=== PATIENT | female | born 1980 | race Caucasian/White ===

== ENCOUNTER 2021-01-11 17:45 | Emergency (ER) | payer OTHER ==
[~2021-01-11] VITALS: Ht 170.2 cm; Wt 106.3 kg
--- NOTE | 2021-01-11 18:53 | NUR ---
Report from Lisa EDEN
[2021-01-11] MEDS ORDERED: ALBUTEROL SULFATE 2.5 MG/3 ML NPPB ONE (19:00)
[2021-01-11] MEDS ORDERED: ACETAMINOPHEN 325 MG TABLET PO ONE (19:00)
[2021-01-11] MEDS ORDERED: BENZONATATE 100 MG CAPSULE PO ONE (19:00)
[2021-01-11] MEDS ORDERED: BENZONATATE 100 MG CAPSULE ONE (19:01)
[2021-01-11] MEDS ORDERED: ALBUTEROL SULFATE 2.5 MG/3 ML ONE (19:02)
[2021-01-11] MEDS ORDERED: ACETAMINOPHEN 500 MG TABLET ONE (19:02)
[2021-01-11 19:13] VITALS: BP 114/68
== END 2021-01-11 20:26 | disposition home or self-care (01) ==
LOC: ED 20:13
DX: U07.1 COVID-19 (principal); J98.01 Acute bronchospasm; R06.02 Shortness of breath; F17.200 Nicotine dependence, unspecified, uncomplicated; Z88.0 Allergy status to penicillin
CPT/HCPCS: 71045; 93005; 94640; 99284; J7512; J7613

== ENCOUNTER 2021-01-16 14:57 | Inpatient (IN) | payer OTHER ==
[~2021-01-16] VITALS: Ht 170.2 cm; Wt 223.2 kg
--- NOTE | 2021-01-16 15:24 | NUR ---
PATIENT WHEELED BACK FROM TRIAGE WITH CHIEF C/O COVID + OF LAST WEDNESDAY. PER PATIENT COUGH, SOB, AND FEVER HAVE NOT IMPROVED. PATIENT CURRENTLY ON 6 LPM NC WITH O2 SATURATION AT 91%-93%, OTHER VSS, CALL LIGHT WITHIN REACH.
[2021-01-16] MEDS ORDERED: DEXAMETHASONE 4 MG/ML, 1ML ONE (16:24)
--- NOTE | 2021-01-16 16:26 | NUR ---
[employer] WORK[employer] AT BEDSIDE. PATIENT MEDICATED PER eMAR, NADN, CONNECTED TO MONITOR, VSS, CALL LIGHT WITHIN REACH.
[2021-01-16] MEDS ORDERED: DEXAMETHASONE 4 MG/ML, 1ML IV ONE (16:30)
[2021-01-16 16:46] LABS: BASOPHILS % (AUTO) 0 % (0-1); EOSINOPHILS % (AUTO) 0 % (1-7); LYMPHOCYTES % (AUTO) 4 % (22-44); MEAN CORPUSCULAR HEMOGLOBIN 31.7 pg (27.0-34.8); MEAN CORPUSCULAR HGB CONC 34.2 g/dL (32.4-35.8); MEAN PLATELET VOLUME 8.8 fL (7.4-10.4); MONOCYTES % (AUTO) 5 % (2-9); NEUTROPHILS % (AUTO) 90 % (42-75); PLATELET COUNT 168 x10^3/uL (130-400); RED BLOOD COUNT 4.69 x10^6/uL (3.82-5.3); RED CELL DISTRIBUTION WIDTH 13.6 % (9.6-15.2)
[2021-01-16 16:56] LABS: ALBUMIN 2.9 g/dL (3.4-5.0); ANION GAP 9 mmol/L (5-15); CALCIUM 8.5 mg/dL (8.5-10.1); CHLORIDE 106 mmol/L (98-107)
[2021-01-16 17:00] LABS: D-DIMER (DIC) 1.13 ug/mlFEU (0.00-0.52)
[2021-01-16 17:05] LABS: ALANINE AMINOTRANSFERASE 63 U/L (12-78); ALKALINE PHOSPHATASE 69 U/L (45-117); BILIRUBIN,TOTAL 0.5 mg/dL (0.2-1.0); CREATININE 0.58 mg/dL (0.55-1.02); TOTAL PROTEIN 6.8 g/dL (6.4-8.2)
--- NOTE | 2021-01-16 17:30 | NUR ---
PATIENT SITTING IN GURNEY WATCHING TV, NADN, CONNECTED TO MONITOR, VSS, CALL LIGHT WITHIN REACH, NO FURTHER NEEDS AT THIS TIME. PATIENT UP FOR RECHECK.
--- NOTE | 2021-01-16 18:27 | NUR ---
FOOD AND WATER PROVIDED TO PATIENT, NADN, CONNECTED TO MONITOR, VSS, CALL LIGHT WITHIN REACH, NO FURTHER NEEDS AT THIS TIME. WAITING FOR ROOM ASSIGNMENT UPSTAIRS.
[2021-01-16] MEDS ORDERED: AZITHROMYCIN 500 MG in SODIUM CHLORIDE 0.9% 250 ML IV SCH (19:30)
[2021-01-16] MEDS ORDERED: PHARMACY MAY ADJ FOR RENAL FX MC PRN (19:30)
[2021-01-16] MEDS ORDERED: CEFTRIAXONE 1,000 MG in DEXTROSE 5% 50 ML IVPB SCH (19:30)
[2021-01-16] MEDS ORDERED: ACETAMINOPHEN 325 MG TABLET PO PRN (19:30)
[2021-01-16] MEDS ORDERED: REMDESIVIR 200 MG in SODIUM CHLORIDE 0.9% 250 ML IVPB ONE (20:30)
[2021-01-16] MEDS: ENOXAPARIN 40 MG/0.4 ML SQ SCH (20:39)
[2021-01-16] MEDS: MELATONIN 5 MG TABLET PO SCH (20:39)
[2021-01-16] MEDS: ASCORBIC ACID 500 MG TABLET PO SCH (20:39)
[2021-01-16 21:15] VITALS: BP 112/75
[2021-01-17] MEDS ORDERED: GUAIFENESIN/COD200MG-20MG/10ML LIQUID PO ONE
[2021-01-17] MEDS ORDERED: DOXYCYCLINE 100 MG in DEXTROSE 5% 250 ML IV SCH
[2021-01-17 01:12] VITALS: BP 97/64
[2021-01-17 06:49] LABS: HCT (SEDRATE) 40.4 % (34.6-47.8)
[2021-01-17 06:51] LABS: BASOPHILS % (AUTO) 0 % (0-1); EOSINOPHILS % (AUTO) 0 % (1-7); LYMPHOCYTES % (AUTO) 10 % (22-44); MEAN CORPUSCULAR HEMOGLOBIN 31.2 pg (27.0-34.8); MEAN CORPUSCULAR HGB CONC 33.7 g/dL (32.4-35.8); MEAN PLATELET VOLUME 8.9 fL (7.4-10.4); MONOCYTES % (AUTO) 11 % (2-9); NEUTROPHILS % (AUTO) 79 % (42-75); PLATELET COUNT 201 x10^3/uL (130-400); RED BLOOD COUNT 4.39 x10^6/uL (3.82-5.3); RED CELL DISTRIBUTION WIDTH 13.1 % (9.6-15.2)
[2021-01-17 07:03] LABS: CHLORIDE 104 mmol/L (98-107)
[2021-01-17 07:04] LABS: INTERNATIONAL NORMALIZED RATIO 0.96 (0.93-1.1); PROTHROMBIN TIME 10.3 Seconds (9.6-11.5)
[2021-01-17 07:14] LABS: ALANINE AMINOTRANSFERASE 67 U/L (12-78); ALBUMIN 2.8 g/dL (3.4-5.0); ALKALINE PHOSPHATASE 63 U/L (45-117); ANION GAP 8 mmol/L (5-15); BILIRUBIN,TOTAL 0.5 mg/dL (0.2-1.0); CALCIUM 8.3 mg/dL (8.5-10.1); CREATINE KINASE, TOTAL 89 U/L (26-192); CREATININE 0.65 mg/dL (0.55-1.02); TOTAL PROTEIN 6.5 g/dL (6.4-8.2)
[2021-01-17] MEDS: CHOLECALCIFEROL 5,000u TAB PO SCH (09:09)
[2021-01-17] MEDS: DEXAMETHASONE 4 MG/ML, 1ML IVPush SCH (09:09)
[2021-01-17] MEDS: ZINC SULFATE 220 MG CAPSULE PO SCH (09:09)
[2021-01-17] MEDS: ASCORBIC ACID 500 MG TABLET PO SCH ×2 (09:09→21:10)
[2021-01-17] MEDS: DOXYCYCLINE 100MG TABLET PO SCH ×2 (10:44→21:09)
[2021-01-17] MEDS: CEFTRIAXONE 2 GM in DEXTROSE 5% 50 ML IVPB SCH (10:44)
[2021-01-17 14:36] VITALS: BP 105/72
[2021-01-17] MEDS: BENZONATATE 100 MG CAPSULE PO SCH ×3 (14:42→21:10)
[2021-01-17] MEDS: GUAIFENESIN/DM 200-20MG, 10ML UDC PO SCH ×2 (16:45→21:10)
[2021-01-17 20:18] VITALS: BP 105/72
[2021-01-17 21:00] VITALS: BP 99/72
[2021-01-17] MEDS: MELATONIN 5 MG TABLET PO SCH (21:09)
[2021-01-17] MEDS: ENOXAPARIN 40 MG/0.4 ML SQ SCH (21:09)
[2021-01-18 01:02] VITALS: BP 103/69
[2021-01-18] MEDS: GUAIFENESIN/DM 200-20MG, 10ML UDC PO SCH ×4 (02:57→20:16)
[2021-01-18] MEDS: REMDESIVIR 100 MG in SODIUM CHLORIDE 0.9% 250 ML IVPB SCH (02:57)
[2021-01-18] MEDS ORDERED: ONDANSETRON ODT 4 MG ONE (04:47)
[2021-01-18] MEDS ORDERED: LORazepam 2 MG/ML, 1ML ONE ×2 (04:50→20:07)
[2021-01-18] MEDS: ONDANSETRON 4 MG TABLET PO PRN ×2 (04:58→11:26)
[2021-01-18] MEDS ORDERED: LORazepam 2 MG/ML, 1ML IVPush ONE (05:00)
[2021-01-18 08:57] LABS: BASOPHILS % (AUTO) 0 % (0-1); EOSINOPHILS % (AUTO) 0 % (1-7); HCT (SEDRATE) 41.2 % (34.6-47.8); LYMPHOCYTES % (AUTO) 12 % (22-44); MEAN CORPUSCULAR HEMOGLOBIN 31.2 pg (27.0-34.8); MEAN CORPUSCULAR HGB CONC 33.4 g/dL (32.4-35.8); MEAN PLATELET VOLUME 8.5 fL (7.4-10.4); MONOCYTES % (AUTO) 4 % (2-9); NEUTROPHILS % (AUTO) 83 % (42-75); PLATELET COUNT 223 x10^3/uL (130-400); RED BLOOD COUNT 4.46 x10^6/uL (3.82-5.3); RED CELL DISTRIBUTION WIDTH 13.6 % (9.6-15.2)
[2021-01-18 09:12] LABS: ALANINE AMINOTRANSFERASE 83 U/L (12-78); ALBUMIN 2.5 g/dL (3.4-5.0); ANION GAP 9 mmol/L (5-15); CALCIUM 8.3 mg/dL (8.5-10.1); CHLORIDE 105 mmol/L (98-107); CREATININE 0.64 mg/dL (0.55-1.02)
[2021-01-18 09:17] LABS: INTERNATIONAL NORMALIZED RATIO 1.03 (0.93-1.1)
[2021-01-18 09:19] LABS: ALKALINE PHOSPHATASE 62 U/L (45-117); BILIRUBIN,TOTAL 0.5 mg/dL (0.2-1.0); CREATINE KINASE, TOTAL 71 U/L (26-192)
[2021-01-18] MEDS: BENZONATATE 100 MG CAPSULE PO SCH ×3 (09:52→20:16)
[2021-01-18] MEDS: DOXYCYCLINE 100MG TABLET PO SCH ×2 (09:52→20:16)
[2021-01-18] MEDS: ASCORBIC ACID 500 MG TABLET PO SCH ×2 (09:52→20:17)
[2021-01-18] MEDS: CHOLECALCIFEROL 5,000u TAB PO SCH (09:53)
[2021-01-18] MEDS: ZINC SULFATE 220 MG CAPSULE PO SCH (09:53)
[2021-01-18] MEDS: FUROSEMIDE 20 MG/2 ML IV SCH ×2 (09:53→17:00)
[2021-01-18] MEDS: DEXAMETHASONE 4 MG/ML, 1ML IVPush SCH (09:53)
[2021-01-18] MEDS: ENOXAPARIN 40 MG/0.4 ML SQ SCH ×2 (09:54→20:16)
[2021-01-18] MEDS ORDERED: FUROSEMIDE 40 MG/4 ML ONE (09:55)
[2021-01-18] MEDS: CEFTRIAXONE 2 GM in DEXTROSE 5% 50 ML IVPB SCH ×2 (10:00→17:00)
[2021-01-18] MEDS ORDERED: PROPOFOL 10 MG/ML, 100ML IV ONE (11:08)
[2021-01-18] MEDS ORDERED: ETOMIDATE 20 MG/10 ML ONE (11:08)
[2021-01-18] MEDS ORDERED: MIDAZOLAM 1 MG/ML, 5ML ONE (11:08)
[2021-01-18] MEDS ORDERED: POTASSIUM CHLORIDE 20 MEQ TAB.ER.PRT PO SCH (17:00)
[2021-01-18] MEDS ORDERED: ONDANSETRON 2MG/ML, 2ML ONE (20:06)
[2021-01-18] MEDS: ONDANSETRON 2MG/ML, 2ML IVPush PRN (20:15)
[2021-01-18] MEDS: MELATONIN 5 MG TABLET PO SCH (20:17)
[2021-01-18] MEDS: LORazepam 2 MG/ML, 1ML IVPush PRN (20:39)
[2021-01-19] MEDS: REMDESIVIR 100 MG in SODIUM CHLORIDE 0.9% 250 ML IVPB SCH (03:00)
[2021-01-19] MEDS: GUAIFENESIN/DM 200-20MG, 10ML UDC PO SCH ×2 (03:30→08:00)
[2021-01-19 04:28] LABS: ANION GAP 5 mmol/L (5-15); CALCIUM 8.2 mg/dL (8.5-10.1); CHLORIDE 106 mmol/L (98-107)
[2021-01-19] MEDS: ONDANSETRON 2MG/ML, 2ML IVPush PRN ×2 (04:40→11:53)
[2021-01-19] MEDS: LORazepam 2 MG/ML, 1ML IVPush PRN (04:40)
[2021-01-19] MEDS: CHOLECALCIFEROL 5,000u TAB PO SCH (07:59)
[2021-01-19] MEDS: FUROSEMIDE 20 MG/2 ML IV SCH ×2 (07:59→17:37)
[2021-01-19] MEDS: BENZONATATE 100 MG CAPSULE PO SCH ×3 (07:59→20:26)
[2021-01-19] MEDS: ASCORBIC ACID 500 MG TABLET PO SCH ×2 (07:59→20:31)
[2021-01-19] MEDS: POTASSIUM CHLORIDE 20 MEQ TAB.ER.PRT PO SCH ×2 (07:59→17:36)
[2021-01-19] MEDS: DOXYCYCLINE 100MG TABLET PO SCH ×2 (07:59→20:26)
[2021-01-19] MEDS: DEXAMETHASONE 4 MG/ML, 1ML IVPush SCH (08:00)
[2021-01-19] MEDS: ENOXAPARIN 40 MG/0.4 ML SQ SCH ×2 (08:00→20:26)
[2021-01-19] MEDS: ZINC SULFATE 220 MG CAPSULE PO SCH (08:03)
[2021-01-19] MEDS: GUAIFENESIN/COD200MG-20MG/10ML LIQUID PO SCH ×3 (08:30→20:26)
[2021-01-19] MEDS: CEFTRIAXONE 2 GM in DEXTROSE 5% 50 ML IVPB SCH (17:37)
[2021-01-19] MEDS: MELATONIN 5 MG TABLET PO SCH (20:26)
[2021-01-20] MEDS: ONDANSETRON 2MG/ML, 2ML IVPush PRN ×3 (00:26→08:24)
[2021-01-20] MEDS: REMDESIVIR 100 MG in SODIUM CHLORIDE 0.9% 250 ML IVPB SCH (03:17)
[2021-01-20] MEDS: GUAIFENESIN/COD200MG-20MG/10ML LIQUID PO SCH ×4 (03:17→20:37)
[2021-01-20 04:57] LABS: ANION GAP 5 mmol/L (5-15); CALCIUM 8.5 mg/dL (8.5-10.1); CHLORIDE 106 mmol/L (98-107); CREATININE 0.61 mg/dL (0.55-1.02)
[2021-01-20] MEDS: THIAMINE 100MG TABLET PO SCH (08:23)
[2021-01-20] MEDS: BENZONATATE 100 MG CAPSULE PO SCH ×3 (08:23→20:37)
[2021-01-20] MEDS: ZINC SULFATE 220 MG CAPSULE PO SCH (08:24)
[2021-01-20] MEDS: CHOLECALCIFEROL 5,000u TAB PO SCH (08:24)
[2021-01-20] MEDS: FUROSEMIDE 20 MG/2 ML IV SCH ×2 (08:24→15:54)
[2021-01-20] MEDS: DOXYCYCLINE 100MG TABLET PO SCH ×2 (08:24→20:37)
[2021-01-20] MEDS: ASCORBIC ACID 500 MG TABLET PO SCH ×2 (08:24→20:38)
[2021-01-20] MEDS: ENOXAPARIN 40 MG/0.4 ML SQ SCH ×2 (08:25→20:38)
[2021-01-20] MEDS: DEXAMETHASONE 4 MG/ML, 1ML IVPush SCH ×3 (08:25→20:37)
[2021-01-20] MEDS ORDERED: FILTER 0.22 MICRON IV ONE (10:00)
[2021-01-20] MEDS ORDERED: TOCILIZUMAB 800 MG in SODIUM CHLORIDE 0.9% 100 ML IVPB ONE (10:00)
[2021-01-20] MEDS: ONDANSETRON 2MG/ML, 2ML IVPush SCH ×3 (13:17→20:10)
[2021-01-20] MEDS: CEFTRIAXONE 2 GM in DEXTROSE 5% 50 ML IVPB SCH (16:09)
[2021-01-20] MEDS: MELATONIN 5 MG TABLET PO SCH (20:37)
[2021-01-21] MEDS: ONDANSETRON 2MG/ML, 2ML IVPush SCH ×2 (00:34→04:34)
[2021-01-21] MEDS: GUAIFENESIN/COD200MG-20MG/10ML LIQUID PO SCH ×4 (02:56→20:33)
[2021-01-21] MEDS: REMDESIVIR 100 MG in SODIUM CHLORIDE 0.9% 250 ML IVPB SCH (02:56)
[2021-01-21] MEDS: DEXAMETHASONE 4 MG/ML, 1ML IVPush SCH ×4 (02:56→20:33)
[2021-01-21 04:45] LABS: BASOPHILS % (AUTO) 0 % (0-1); EOSINOPHILS % (AUTO) 0 % (1-7); LYMPHOCYTES % (AUTO) 6 % (22-44); MEAN CORPUSCULAR HEMOGLOBIN 31.7 pg (27.0-34.8); MEAN CORPUSCULAR HGB CONC 34.2 g/dL (32.4-35.8); MEAN PLATELET VOLUME 8.6 fL (7.4-10.4); MONOCYTES % (AUTO) 4 % (2-9); NEUTROPHILS % (AUTO) 90 % (42-75); PLATELET COUNT 274 x10^3/uL (130-400); RED BLOOD COUNT 4.41 x10^6/uL (3.82-5.3); RED CELL DISTRIBUTION WIDTH 13.1 % (9.6-15.2)
[2021-01-21 04:51] LABS: ANION GAP 4 mmol/L (5-15); CALCIUM 8.4 mg/dL (8.5-10.1); CHLORIDE 102 mmol/L (98-107); CREATININE 0.53 mg/dL (0.55-1.02)
[2021-01-21] MEDS ORDERED: ONDANSETRON 2MG/ML, 2ML IVPush PRN (08:30)
[2021-01-21] MEDS ORDERED: LOPERAMIDE 2 MG CAPSULE PO PRN (09:00)
[2021-01-21] MEDS: FUROSEMIDE 20 MG/2 ML IV SCH ×2 (09:20→17:29)
[2021-01-21] MEDS: ENOXAPARIN 40 MG/0.4 ML SQ SCH ×2 (09:20→20:34)
[2021-01-21] MEDS: BENZONATATE 100 MG CAPSULE PO SCH ×3 (09:22→20:34)
[2021-01-21] MEDS: POTASSIUM CHLORIDE 20 MEQ TAB.ER.PRT PO SCH ×2 (09:22→17:29)
[2021-01-21] MEDS: ZINC SULFATE 220 MG CAPSULE PO SCH (09:22)
[2021-01-21] MEDS: CHOLECALCIFEROL 5,000u TAB PO SCH (09:22)
[2021-01-21] MEDS: DOXYCYCLINE 100MG TABLET PO SCH ×2 (09:22→20:34)
[2021-01-21] MEDS: THIAMINE 100MG TABLET PO SCH (09:23)
[2021-01-21] MEDS: ASCORBIC ACID 500 MG TABLET PO SCH ×2 (14:32→20:34)
[2021-01-21] MEDS: CEFTRIAXONE 2 GM in DEXTROSE 5% 50 ML IVPB SCH (17:29)
[2021-01-21] MEDS: MELATONIN 5 MG TABLET PO SCH (20:33)
[2021-01-22] MEDS: GUAIFENESIN/COD200MG-20MG/10ML LIQUID PO SCH ×4 (02:52→20:54)
[2021-01-22] MEDS: DEXAMETHASONE 4 MG/ML, 1ML IVPush SCH ×4 (02:52→20:54)
[2021-01-22 05:24] LABS: ANION GAP 3 mmol/L (5-15); CALCIUM 8.6 mg/dL (8.5-10.1); CHLORIDE 103 mmol/L (98-107); CREATININE 0.68 mg/dL (0.55-1.02)
[2021-01-22] MEDS: BENZONATATE 100 MG CAPSULE PO SCH ×3 (09:07→20:54)
[2021-01-22] MEDS: THIAMINE 100MG TABLET PO SCH (09:07)
[2021-01-22] MEDS: ZINC SULFATE 220 MG CAPSULE PO SCH (09:08)
[2021-01-22] MEDS: FUROSEMIDE 20 MG/2 ML IV SCH ×2 (09:08→16:23)
[2021-01-22] MEDS: DOXYCYCLINE 100MG TABLET PO SCH ×2 (09:08→20:55)
[2021-01-22] MEDS: CHOLECALCIFEROL 5,000u TAB PO SCH (09:08)
[2021-01-22] MEDS: ASCORBIC ACID 500 MG TABLET PO SCH ×2 (09:08→20:55)
[2021-01-22] MEDS: ENOXAPARIN 40 MG/0.4 ML SQ SCH ×2 (09:09→20:57)
[2021-01-22 09:44] LABS: BILIRUBIN,TOTAL 0.4 mg/dL (0.2-1.0)
[2021-01-22] MEDS ORDERED: TOCILIZUMAB 800 MG in SODIUM CHLORIDE 0.9% 60 ML IVPB ONE (11:00)
[2021-01-22] MEDS: REMDESIVIR 100 MG in SODIUM CHLORIDE 0.9% 250 ML IVPB SCH (11:17)
[2021-01-22] MEDS: CEFTRIAXONE 2 GM in DEXTROSE 5% 50 ML IVPB SCH (16:28)
[2021-01-22] MEDS: MELATONIN 5 MG TABLET PO SCH (20:54)
[2021-01-23] VITALS (9 sets, daily range): BP systolic 84–101; BP diastolic 41–73
[2021-01-23] MEDS: GUAIFENESIN/COD200MG-20MG/10ML LIQUID PO SCH ×4 (03:27→21:12)
[2021-01-23] MEDS: DEXAMETHASONE 4 MG/ML, 1ML IVPush SCH ×3 (03:28→21:12)
[2021-01-23 05:22] LABS: BASOPHILS % (AUTO) 0 % (0-1); EOSINOPHILS % (AUTO) 0 % (1-7); LYMPHOCYTES % (AUTO) 4 % (22-44); MEAN CORPUSCULAR HEMOGLOBIN 31.4 pg (27.0-34.8); MEAN CORPUSCULAR HGB CONC 34.1 g/dL (32.4-35.8); MEAN PLATELET VOLUME 8.6 fL (7.4-10.4); MONOCYTES % (AUTO) 5 % (2-9); NEUTROPHILS % (AUTO) 91 % (42-75); PLATELET COUNT 280 x10^3/uL (130-400); RED BLOOD COUNT 4.73 x10^6/uL (3.82-5.3); RED CELL DISTRIBUTION WIDTH 12.8 % (9.6-15.2)
[2021-01-23 05:37] LABS: ALANINE AMINOTRANSFERASE 35 U/L (12-78); ALBUMIN 2.6 g/dL (3.4-5.0); ANION GAP 6 mmol/L (5-15); CHLORIDE 102 mmol/L (98-107)
[2021-01-23 05:39] LABS: ALKALINE PHOSPHATASE 48 U/L (45-117); BILIRUBIN,TOTAL 0.4 mg/dL (0.2-1.0); TOTAL PROTEIN 5.9 g/dL (6.4-8.2)
[2021-01-23] MEDS: FUROSEMIDE 20 MG/2 ML IV SCH ×2 (08:43→16:07)
[2021-01-23] MEDS: ASCORBIC ACID 500 MG TABLET PO SCH ×2 (08:44→21:12)
[2021-01-23] MEDS: BENZONATATE 100 MG CAPSULE PO SCH ×3 (08:44→21:12)
[2021-01-23] MEDS: DOXYCYCLINE 100MG TABLET PO SCH ×2 (08:44→21:12)
[2021-01-23] MEDS: ZINC SULFATE 220 MG CAPSULE PO SCH (08:44)
[2021-01-23] MEDS: THIAMINE 100MG TABLET PO SCH (08:45)
[2021-01-23] MEDS: CHOLECALCIFEROL 5,000u TAB PO SCH (08:45)
[2021-01-23] MEDS: ENOXAPARIN 40 MG/0.4 ML SQ SCH ×2 (08:46→21:13)
[2021-01-23] MEDS: REMDESIVIR 100 MG in SODIUM CHLORIDE 0.9% 250 ML IVPB SCH (10:14)
[2021-01-23] MEDS: CEFTRIAXONE 2 GM in DEXTROSE 5% 50 ML IVPB SCH (16:00)
[2021-01-23] MEDS: MELATONIN 5 MG TABLET PO SCH (21:12)
[2021-01-24 01:26] VITALS: BP 101/63
[2021-01-24] MEDS: GUAIFENESIN/COD200MG-20MG/10ML LIQUID PO SCH ×4 (02:22→20:15)
[2021-01-24 05:01] LABS: ALBUMIN 2.5 g/dL (3.4-5.0); ANION GAP 7 mmol/L (5-15); CALCIUM 8.8 mg/dL (8.5-10.1); CHLORIDE 100 mmol/L (98-107)
[2021-01-24 05:05] LABS: ALANINE AMINOTRANSFERASE 35 U/L (12-78); ALKALINE PHOSPHATASE 48 U/L (45-117); BILIRUBIN,TOTAL 0.6 mg/dL (0.2-1.0); CREATININE 0.68 mg/dL (0.55-1.02); TOTAL PROTEIN 5.7 g/dL (6.4-8.2)
[2021-01-24 07:52] VITALS: BP 102/62
[2021-01-24] MEDS: CHOLECALCIFEROL 5,000u TAB PO SCH (09:13)
[2021-01-24] MEDS: THIAMINE 100MG TABLET PO SCH (09:13)
[2021-01-24] MEDS: BENZONATATE 100 MG CAPSULE PO SCH ×3 (09:13→20:16)
[2021-01-24] MEDS: DEXAMETHASONE 4 MG/ML, 1ML IVPush SCH ×2 (09:13→20:23)
[2021-01-24] MEDS: DOXYCYCLINE 100MG TABLET PO SCH ×2 (09:13→20:29)
[2021-01-24] MEDS: ASCORBIC ACID 500 MG TABLET PO SCH ×2 (09:14→20:29)
[2021-01-24] MEDS: ZINC SULFATE 220 MG CAPSULE PO SCH (09:14)
[2021-01-24] MEDS: ENOXAPARIN 40 MG/0.4 ML SQ SCH ×2 (09:14→20:30)
[2021-01-24] MEDS: FUROSEMIDE 20 MG/2 ML IV SCH ×2 (09:18→17:13)
[2021-01-24] MEDS: REMDESIVIR 100 MG in SODIUM CHLORIDE 0.9% 250 ML IVPB SCH (11:20)
[2021-01-24 12:56] VITALS: BP 90/63
[2021-01-24] MEDS: CEFTRIAXONE 2 GM in DEXTROSE 5% 50 ML IVPB SCH (16:44)
[2021-01-24] MEDS: MELATONIN 5 MG TABLET PO SCH (20:31)
[2021-01-24 20:43] VITALS: BP 94/62
[2021-01-25] MEDS: GUAIFENESIN/COD200MG-20MG/10ML LIQUID PO SCH ×4 (02:47→20:22)
[2021-01-25 02:51] VITALS: BP 101/68
[2021-01-25 06:27] LABS: ALBUMIN 2.3 g/dL (3.4-5.0); ANION GAP 11 mmol/L (5-15); CALCIUM 8.2 mg/dL (8.5-10.1); CHLORIDE 99 mmol/L (98-107)
[2021-01-25 06:30] LABS: ALANINE AMINOTRANSFERASE 32 U/L (12-78); ALKALINE PHOSPHATASE 49 U/L (45-117); BILIRUBIN,TOTAL 0.4 mg/dL (0.2-1.0); CREATININE 0.75 mg/dL (0.55-1.02); TOTAL PROTEIN 5.3 g/dL (6.4-8.2)
[2021-01-25] MEDS: FUROSEMIDE 20 MG/2 ML IV SCH ×3 (07:30→18:15)
[2021-01-25] MEDS: ENOXAPARIN 40 MG/0.4 ML SQ SCH ×2 (09:00→20:22)
[2021-01-25 09:34] VITALS: BP 101/70
[2021-01-25] MEDS: BENZONATATE 100 MG CAPSULE PO SCH ×3 (10:29→20:22)
[2021-01-25] MEDS: CHOLECALCIFEROL 5,000u TAB PO SCH (10:29)
[2021-01-25] MEDS: ASCORBIC ACID 500 MG TABLET PO SCH ×2 (10:29→20:22)
[2021-01-25] MEDS: ZINC SULFATE 220 MG CAPSULE PO SCH (10:29)
[2021-01-25] MEDS: THIAMINE 100MG TABLET PO SCH (10:30)
[2021-01-25] MEDS: DEXAMETHASONE 4 MG/ML, 1ML IVPush SCH (10:46)
[2021-01-25] MEDS: REMDESIVIR 100 MG in SODIUM CHLORIDE 0.9% 250 ML IVPB SCH (11:53)
[2021-01-25 15:29] VITALS: BP 96/63
[2021-01-25 18:13] VITALS: BP 103/67
[2021-01-25] MEDS: MELATONIN 5 MG TABLET PO SCH (20:22)
[2021-01-26] MEDS: GUAIFENESIN/COD200MG-20MG/10ML LIQUID PO SCH ×4 (01:00→20:19)
[2021-01-26 01:01] VITALS: BP 98/66
[2021-01-26 06:05] LABS: HCT (SEDRATE) 46.2 % (34.6-47.8)
[2021-01-26 06:10] LABS: BASOPHILS % (AUTO) 0 % (0-1); EOSINOPHILS % (AUTO) 1 % (1-7); LYMPHOCYTES % (AUTO) 5 % (22-44); MEAN CORPUSCULAR HGB CONC 33.5 g/dL (32.4-35.8); MEAN PLATELET VOLUME 8.8 fL (7.4-10.4); MONOCYTES % (AUTO) 6 % (2-9); NEUTROPHILS % (AUTO) 88 % (42-75); PLATELET COUNT 210 x10^3/uL (130-400); RED BLOOD COUNT 4.94 x10^6/uL (3.82-5.3); RED CELL DISTRIBUTION WIDTH 13.1 % (9.6-15.2)
[2021-01-26 06:19] VITALS: BP 97/63
[2021-01-26 06:19] LABS: CHLORIDE 98 mmol/L (98-107)
[2021-01-26 06:34] LABS: ALANINE AMINOTRANSFERASE 36 U/L (12-78); ALBUMIN 2.5 g/dL (3.4-5.0); ALKALINE PHOSPHATASE 47 U/L (45-117); ANION GAP 4 mmol/L (5-15); BILIRUBIN,TOTAL 0.7 mg/dL (0.2-1.0); CALCIUM 8.4 mg/dL (8.5-10.1); CREATININE 0.68 mg/dL (0.55-1.02); TOTAL PROTEIN 5.5 g/dL (6.4-8.2)
[2021-01-26] MEDS ORDERED: POLYETHYLENE GLYCOL 17 GM PACKET PO PRN (08:30)
[2021-01-26 08:38] VITALS: BP 104/70
[2021-01-26] MEDS: DEXAMETHASONE 4 MG/ML, 1ML IVPush SCH (09:05)
[2021-01-26] MEDS: SENNA/DOCUSATE TABLET PO SCH (09:06)
[2021-01-26] MEDS: BENZONATATE 100 MG CAPSULE PO SCH ×3 (09:06→20:19)
[2021-01-26] MEDS: FUROSEMIDE 20 MG/2 ML IV SCH (09:06)
[2021-01-26] MEDS: ZINC SULFATE 220 MG CAPSULE PO SCH (09:07)
[2021-01-26] MEDS: ASCORBIC ACID 500 MG TABLET PO SCH ×2 (09:07→20:19)
[2021-01-26] MEDS: ENOXAPARIN 40 MG/0.4 ML SQ SCH ×2 (09:07→20:18)
[2021-01-26] MEDS: CHOLECALCIFEROL 5,000u TAB PO SCH (09:07)
[2021-01-26] MEDS: THIAMINE 100MG TABLET PO SCH (09:07)
[2021-01-26] MEDS: REMDESIVIR 100 MG in SODIUM CHLORIDE 0.9% 250 ML IVPB SCH (10:29)
[2021-01-26 13:35] VITALS: BP 85/55
[2021-01-26 16:59] VITALS: BP 101/70
[2021-01-26] MEDS: CALCIUM CARBONATE 500 MG TAB.CHEW PO PRN (17:04)
[2021-01-26] MEDS: MELATONIN 5 MG TABLET PO SCH (20:19)
[2021-01-26 20:23] VITALS: BP 104/66
[2021-01-27 00:39] VITALS: BP 110/76
[2021-01-27] MEDS: GUAIFENESIN/COD200MG-20MG/10ML LIQUID PO SCH ×4 (00:54→20:11)
[2021-01-27 06:04] LABS: BASOPHILS % (AUTO) 0 % (0-1); EOSINOPHILS % (AUTO) 1 % (1-7); LYMPHOCYTES % (AUTO) 8 % (22-44); MEAN CORPUSCULAR HEMOGLOBIN 31.6 pg (27.0-34.8); MEAN CORPUSCULAR HGB CONC 34.2 g/dL (32.4-35.8); MEAN PLATELET VOLUME 9.3 fL (7.4-10.4); MONOCYTES % (AUTO) 6 % (2-9); NEUTROPHILS % (AUTO) 85 % (42-75); PLATELET COUNT 164 x10^3/uL (130-400); RED BLOOD COUNT 4.59 x10^6/uL (3.82-5.3); RED CELL DISTRIBUTION WIDTH 13.1 % (9.6-15.2)
[2021-01-27 06:12] LABS: ALANINE AMINOTRANSFERASE 39 U/L (12-78); ALBUMIN 2.3 g/dL (3.4-5.0); ANION GAP 3 mmol/L (5-15); C-REACTIVE PROTEIN, QUANT 0.18 mg/dL (0.02-0.49); CALCIUM 8.4 mg/dL (8.5-10.1); CHLORIDE 101 mmol/L (98-107); CREATININE 0.65 mg/dL (0.55-1.02)
[2021-01-27 06:14] LABS: ALKALINE PHOSPHATASE 45 U/L (45-117); BILIRUBIN,TOTAL 0.7 mg/dL (0.2-1.0)
[2021-01-27 07:01] VITALS: BP 90/66
[2021-01-27] MEDS: BENZONATATE 100 MG CAPSULE PO SCH ×3 (09:03→20:11)
[2021-01-27] MEDS: ZINC SULFATE 220 MG CAPSULE PO SCH (09:04)
[2021-01-27] MEDS: THIAMINE 100MG TABLET PO SCH (09:04)
[2021-01-27] MEDS: SENNA/DOCUSATE TABLET PO SCH (09:04)
[2021-01-27] MEDS: ASCORBIC ACID 500 MG TABLET PO SCH ×2 (09:04→20:11)
[2021-01-27] MEDS: CHOLECALCIFEROL 5,000u TAB PO SCH (09:04)
[2021-01-27] MEDS: ENOXAPARIN 40 MG/0.4 ML SQ SCH ×2 (09:04→20:11)
[2021-01-27] MEDS: DEXAMETHASONE 4 MG/ML, 1ML IVPush SCH (09:06)
[2021-01-27] MEDS: FUROSEMIDE 20 MG/2 ML IV SCH (09:10)
[2021-01-27 12:49] VITALS: BP 103/68
[2021-01-27 18:42] VITALS: BP 108/70
[2021-01-27] MEDS: MELATONIN 5 MG TABLET PO SCH (20:11)
[2021-01-28] MEDS: GUAIFENESIN/COD200MG-20MG/10ML LIQUID PO SCH ×5 (01:22→21:43)
[2021-01-28 01:34] VITALS: BP 98/65
[2021-01-28 05:22] LABS: BASOPHILS % (AUTO) 0 % (0-1); EOSINOPHILS % (AUTO) 0 % (1-7); LYMPHOCYTES % (AUTO) 10 % (22-44); MEAN CORPUSCULAR HEMOGLOBIN 31.2 pg (27.0-34.8); MEAN CORPUSCULAR HGB CONC 33.6 g/dL (32.4-35.8); MEAN PLATELET VOLUME 9.3 fL (7.4-10.4); MONOCYTES % (AUTO) 6 % (2-9); NEUTROPHILS % (AUTO) 84 % (42-75); PLATELET COUNT 160 x10^3/uL (130-400); RED BLOOD COUNT 4.53 x10^6/uL (3.82-5.3); RED CELL DISTRIBUTION WIDTH 13.1 % (9.6-15.2)
[2021-01-28 05:36] LABS: ALBUMIN 2.3 g/dL (3.4-5.0); ANION GAP 5 mmol/L (5-15); CALCIUM 8.2 mg/dL (8.5-10.1); CHLORIDE 103 mmol/L (98-107)
[2021-01-28 05:43] LABS: ALANINE AMINOTRANSFERASE 47 U/L (12-78); ALKALINE PHOSPHATASE 44 U/L (45-117); BILIRUBIN,TOTAL 0.7 mg/dL (0.2-1.0); C-REACTIVE PROTEIN, QUANT 0.12 mg/dL (0.02-0.49); CREATININE 0.56 mg/dL (0.55-1.02)
[2021-01-28 08:26] VITALS: BP 99/66
[2021-01-28] MEDS: FUROSEMIDE 20 MG/2 ML IV SCH (08:29)
[2021-01-28] MEDS: DEXAMETHASONE 4 MG/ML, 1ML IVPush SCH (08:29)
[2021-01-28] MEDS ORDERED: POLYETHYLENE GLYCOL 17 GM PACKET NG ONE (08:30)
[2021-01-28] MEDS: SENNA/DOCUSATE TABLET PO SCH (08:31)
[2021-01-28] MEDS: ENOXAPARIN 40 MG/0.4 ML SQ SCH ×2 (08:31→21:44)
[2021-01-28] MEDS: BENZONATATE 100 MG CAPSULE PO SCH ×3 (08:31→21:43)
[2021-01-28] MEDS: ASCORBIC ACID 500 MG TABLET PO SCH ×2 (08:32→21:43)
[2021-01-28] MEDS: THIAMINE 100MG TABLET PO SCH (08:33)
[2021-01-28] MEDS: ZINC SULFATE 220 MG CAPSULE PO SCH (08:33)
[2021-01-28] MEDS: CHOLECALCIFEROL 5,000u TAB PO SCH (08:33)
[2021-01-28 14:43] VITALS: BP 95/63
[2021-01-28] MEDS: CALCIUM CARBONATE 500 MG TAB.CHEW PO PRN (16:40)
[2021-01-28 19:02] VITALS: BP 103/59
[2021-01-28] MEDS: MELATONIN 5 MG TABLET PO SCH (21:43)
[2021-01-29 00:42] VITALS: BP 107/52
[2021-01-29] MEDS: GUAIFENESIN/COD200MG-20MG/10ML LIQUID PO SCH ×4 (02:18→21:07)
[2021-01-29 05:56] LABS: BASOPHILS % (AUTO) 0 % (0-1); EOSINOPHILS % (AUTO) 0 % (1-7); LYMPHOCYTES % (AUTO) 13 % (22-44); MEAN CORPUSCULAR HEMOGLOBIN 30.9 pg (27.0-34.8); MEAN CORPUSCULAR HGB CONC 33.2 g/dL (32.4-35.8); MEAN PLATELET VOLUME 9.5 fL (7.4-10.4); MONOCYTES % (AUTO) 6 % (2-9); NEUTROPHILS % (AUTO) 80 % (42-75); PLATELET COUNT 135 x10^3/uL (130-400); RED BLOOD COUNT 4.69 x10^6/uL (3.82-5.3); RED CELL DISTRIBUTION WIDTH 13.2 % (9.6-15.2)
[2021-01-29 06:07] LABS: CHLORIDE 105 mmol/L (98-107)
[2021-01-29 06:19] LABS: ALANINE AMINOTRANSFERASE 65 U/L (12-78); ALBUMIN 2.6 g/dL (3.4-5.0); ALKALINE PHOSPHATASE 44 U/L (45-117); ANION GAP 5 mmol/L (5-15); BILIRUBIN,TOTAL 0.7 mg/dL (0.2-1.0); CALCIUM 8.5 mg/dL (8.5-10.1); CREATININE 0.53 mg/dL (0.55-1.02); TOTAL PROTEIN 5.2 g/dL (6.4-8.2)
[2021-01-29 07:39] VITALS: BP 104/62
[2021-01-29] MEDS: ZINC SULFATE 220 MG CAPSULE PO SCH (07:43)
[2021-01-29] MEDS: SENNA/DOCUSATE TABLET PO SCH (07:43)
[2021-01-29] MEDS: ASCORBIC ACID 500 MG TABLET PO SCH ×2 (07:43→21:07)
[2021-01-29] MEDS: CHOLECALCIFEROL 5,000u TAB PO SCH (07:43)
[2021-01-29] MEDS: ENOXAPARIN 40 MG/0.4 ML SQ SCH ×2 (07:43→21:07)
[2021-01-29] MEDS: BENZONATATE 100 MG CAPSULE PO SCH ×3 (07:43→21:07)
[2021-01-29] MEDS: DEXAMETHASONE 4 MG/ML, 1ML IVPush SCH (07:44)
[2021-01-29] MEDS: THIAMINE 100MG TABLET PO SCH (07:44)
[2021-01-29] MEDS: FUROSEMIDE 20 MG/2 ML IV SCH (07:44)
[2021-01-29 14:09] VITALS: BP 95/55
[2021-01-29 20:03] VITALS: BP 99/60
[2021-01-29] MEDS: MELATONIN 5 MG TABLET PO SCH (21:07)
[2021-01-30 00:40] VITALS: BP 94/59
[2021-01-30] MEDS: GUAIFENESIN/COD200MG-20MG/10ML LIQUID PO SCH ×4 (02:00→20:24)
[2021-01-30] MEDS: DOCUSATE 100 MG CAPSULE PO PRN (05:43)
[2021-01-30 05:45] LABS: BASOPHILS % (AUTO) 0 % (0-1); EOSINOPHILS % (AUTO) 2 % (1-7); LYMPHOCYTES % (AUTO) 23 % (22-44); MEAN CORPUSCULAR HEMOGLOBIN 31.2 pg (27.0-34.8); MEAN CORPUSCULAR HGB CONC 33.6 g/dL (32.4-35.8); MEAN PLATELET VOLUME 9.6 fL (7.4-10.4); MONOCYTES % (AUTO) 9 % (2-9); NEUTROPHILS % (AUTO) 66 % (42-75); PLATELET COUNT 124 x10^3/uL (130-400); RED BLOOD COUNT 4.31 x10^6/uL (3.82-5.3); RED CELL DISTRIBUTION WIDTH 13.4 % (9.6-15.2)
[2021-01-30 05:53] LABS: ALBUMIN 2.3 g/dL (3.4-5.0); CALCIUM 7.9 mg/dL (8.5-10.1); CHLORIDE 105 mmol/L (98-107)
[2021-01-30 06:02] LABS: ALANINE AMINOTRANSFERASE 76 U/L (12-78); ALKALINE PHOSPHATASE 42 U/L (45-117); ANION GAP 3 mmol/L (5-15); BILIRUBIN,TOTAL 0.6 mg/dL (0.2-1.0); C-REACTIVE PROTEIN, QUANT 0.06 mg/dL (0.02-0.49); CREATININE 0.61 mg/dL (0.55-1.02); TOTAL PROTEIN 4.7 g/dL (6.4-8.2)
[2021-01-30 08:05] VITALS: BP 108/53
[2021-01-30] MEDS: SENNA/DOCUSATE TABLET PO SCH (08:58)
[2021-01-30] MEDS: ENOXAPARIN 40 MG/0.4 ML SQ SCH ×2 (08:58→20:26)
[2021-01-30] MEDS: CHOLECALCIFEROL 5,000u TAB PO SCH (08:59)
[2021-01-30] MEDS: BENZONATATE 100 MG CAPSULE PO SCH ×3 (08:59→20:24)
[2021-01-30] MEDS: ASCORBIC ACID 500 MG TABLET PO SCH ×2 (08:59→20:24)
[2021-01-30] MEDS: ZINC SULFATE 220 MG CAPSULE PO SCH (08:59)
[2021-01-30] MEDS: DEXAMETHASONE 4 MG/ML, 1ML IVPush SCH (08:59)
[2021-01-30] MEDS ORDERED: LORazepam 2 MG/ML, 1ML IVPush PRN (12:00)
[2021-01-30 12:29] VITALS: BP 102/63
[2021-01-30] MEDS: FUROSEMIDE 40 MG/4 ML IV SCH ×2 (13:39→16:04)
[2021-01-30] MEDS ORDERED: OMNIPAQUE 350 MG/ML, 100ML BOTTLE ONE (18:28)
[2021-01-30] MEDS: MELATONIN 5 MG TABLET PO SCH (20:24)
[2021-01-30 20:25] VITALS: BP 96/60
[2021-01-31 01:00] VITALS: BP 97/63
[2021-01-31] MEDS: GUAIFENESIN/COD200MG-20MG/10ML LIQUID PO SCH ×4 (02:25→20:38)
[2021-01-31 05:40] LABS: BASOPHILS % (AUTO) 0 % (0-1); EOSINOPHILS % (AUTO) 0 % (1-7); LYMPHOCYTES % (AUTO) 10 % (22-44); MEAN CORPUSCULAR HEMOGLOBIN 31.4 pg (27.0-34.8); MEAN CORPUSCULAR HGB CONC 33.7 g/dL (32.4-35.8); MEAN PLATELET VOLUME 9.7 fL (7.4-10.4); MONOCYTES % (AUTO) 7 % (2-9); NEUTROPHILS % (AUTO) 83 % (42-75); PLATELET COUNT 130 x10^3/uL (130-400); RED BLOOD COUNT 4.65 x10^6/uL (3.82-5.3); RED CELL DISTRIBUTION WIDTH 13.1 % (9.6-15.2)
[2021-01-31 05:49] LABS: CHLORIDE 105 mmol/L (98-107)
[2021-01-31 06:16] LABS: ALANINE AMINOTRANSFERASE 79 U/L (12-78); ALBUMIN 2.7 g/dL (3.4-5.0); ALKALINE PHOSPHATASE 45 U/L (45-117); ANION GAP 8 mmol/L (5-15); BILIRUBIN,TOTAL 0.6 mg/dL (0.2-1.0); CALCIUM 8.1 mg/dL (8.5-10.1); TOTAL PROTEIN 5.4 g/dL (6.4-8.2)
[2021-01-31] MEDS: BENZONATATE 100 MG CAPSULE PO SCH ×3 (08:42→20:38)
[2021-01-31] MEDS: ZINC SULFATE 220 MG CAPSULE PO SCH (08:42)
[2021-01-31] MEDS: SENNA/DOCUSATE TABLET PO SCH (08:42)
[2021-01-31] MEDS: ASCORBIC ACID 500 MG TABLET PO SCH ×2 (08:42→20:38)
[2021-01-31] MEDS: ENOXAPARIN 40 MG/0.4 ML SQ SCH ×2 (08:42→20:39)
[2021-01-31] MEDS: CHOLECALCIFEROL 5,000u TAB PO SCH (08:42)
[2021-01-31] MEDS: DEXAMETHASONE 4 MG/ML, 1ML IVPush SCH (08:43)
[2021-01-31] MEDS: FUROSEMIDE 40 MG/4 ML IV SCH ×2 (08:43→18:05)
[2021-01-31 08:50] VITALS: BP 105/54
[2021-01-31] MEDS ORDERED: SODIUM CHLORIDE NASAL SPRAY 45ML BOTTLE NAS PRN (12:30)
[2021-01-31 14:19] VITALS: BP 101/61
[2021-01-31 20:07] VITALS: BP 103/61
[2021-01-31] MEDS: MELATONIN 5 MG TABLET PO SCH (20:38)
[2021-02-01 00:40] VITALS: BP 130/63
[2021-02-01] MEDS: CALCIUM CARBONATE 500 MG TAB.CHEW PO PRN (00:52)
[2021-02-01] MEDS: GUAIFENESIN/COD200MG-20MG/10ML LIQUID PO SCH ×4 (00:52→20:35)
[2021-02-01 06:32] LABS: BASOPHILS % (AUTO) 0 % (0-1); EOSINOPHILS % (AUTO) 1 % (1-7); LYMPHOCYTES % (AUTO) 17 % (22-44); MEAN CORPUSCULAR HEMOGLOBIN 31.7 pg (27.0-34.8); MEAN CORPUSCULAR HGB CONC 33.8 g/dL (32.4-35.8); MEAN PLATELET VOLUME 9.9 fL (7.4-10.4); MONOCYTES % (AUTO) 8 % (2-9); NEUTROPHILS % (AUTO) 74 % (42-75); PLATELET COUNT 121 x10^3/uL (130-400); RED BLOOD COUNT 4.51 x10^6/uL (3.82-5.3); RED CELL DISTRIBUTION WIDTH 13.3 % (9.6-15.2)
[2021-02-01 06:43] LABS: CHLORIDE 100 mmol/L (98-107)
[2021-02-01 06:49] LABS: ALANINE AMINOTRANSFERASE 86 U/L (12-78); ALBUMIN 2.8 g/dL (3.4-5.0); ALKALINE PHOSPHATASE 46 U/L (45-117); ANION GAP 4 mmol/L (5-15); BILIRUBIN,TOTAL 0.6 mg/dL (0.2-1.0); C-REACTIVE PROTEIN, QUANT 0.05 mg/dL (0.02-0.49); CREATININE 0.64 mg/dL (0.55-1.02); TOTAL PROTEIN 5.6 g/dL (6.4-8.2)
[2021-02-01] MEDS: DEXAMETHASONE 4 MG/ML, 1ML IVPush SCH (08:59)
[2021-02-01] MEDS: FUROSEMIDE 40 MG/4 ML IV SCH ×2 (09:01→16:15)
[2021-02-01] MEDS: ASCORBIC ACID 500 MG TABLET PO SCH ×2 (09:01→20:34)
[2021-02-01] MEDS: BENZONATATE 100 MG CAPSULE PO SCH ×3 (09:01→20:34)
[2021-02-01] MEDS: SENNA/DOCUSATE TABLET PO SCH (09:02)
[2021-02-01] MEDS: ENOXAPARIN 40 MG/0.4 ML SQ SCH ×2 (09:02→20:35)
[2021-02-01] MEDS: CHOLECALCIFEROL 5,000u TAB PO SCH (09:02)
[2021-02-01] MEDS: ZINC SULFATE 220 MG CAPSULE PO SCH (09:02)
[2021-02-01 09:11] VITALS: BP 81/52
[2021-02-01] MEDS ORDERED: BISACODYL 10 MG SUPP PR PRN (10:30)
[2021-02-01 13:52] VITALS: BP 96/61
[2021-02-01 18:37] VITALS: BP 107/68
[2021-02-01] MEDS: MELATONIN 5 MG TABLET PO SCH (20:34)
[2021-02-02 01:41] VITALS: BP 99/67
[2021-02-02] MEDS: GUAIFENESIN/COD200MG-20MG/10ML LIQUID PO SCH ×4 (01:52→21:33)
[2021-02-02 06:09] LABS: CHLORIDE 99 mmol/L (98-107)
[2021-02-02 06:15] LABS: ALANINE AMINOTRANSFERASE 81 U/L (12-78); ALBUMIN 2.9 g/dL (3.4-5.0); ALKALINE PHOSPHATASE 43 U/L (45-117); ANION GAP 5 mmol/L (5-15); BILIRUBIN,TOTAL 0.7 mg/dL (0.2-1.0); CREATININE 0.53 mg/dL (0.55-1.02); TOTAL PROTEIN 5.5 g/dL (6.4-8.2)
[2021-02-02 07:02] LABS: CALCIUM 8.4 mg/dL (8.5-10.1)
[2021-02-02] MEDS: SENNA/DOCUSATE TABLET PO SCH (10:06)
[2021-02-02] MEDS: ZINC SULFATE 220 MG CAPSULE PO SCH (10:06)
[2021-02-02] MEDS: CHOLECALCIFEROL 5,000u TAB PO SCH (10:06)
[2021-02-02] MEDS: BENZONATATE 100 MG CAPSULE PO SCH ×3 (10:06→21:33)
[2021-02-02] MEDS: HYDROXYZINE PAMOATE 50MG CAP PO PRN ×2 (10:07→17:45)
[2021-02-02] MEDS: FUROSEMIDE 40 MG/4 ML IV SCH ×2 (10:08→17:44)
[2021-02-02] MEDS: DEXAMETHASONE 4 MG/ML, 1ML IVPush SCH (10:09)
[2021-02-02] MEDS: ASCORBIC ACID 500 MG TABLET PO SCH ×2 (10:12→21:34)
[2021-02-02] MEDS: ENOXAPARIN 40 MG/0.4 ML SQ SCH ×2 (10:13→21:33)
[2021-02-02 20:00] VITALS: BP 100/60
[2021-02-02] MEDS: MELATONIN 5 MG TABLET PO SCH (21:33)
[2021-02-03 00:51] VITALS: BP 103/70
[2021-02-03] MEDS: GUAIFENESIN/COD200MG-20MG/10ML LIQUID PO SCH ×4 (04:00→22:25)
[2021-02-03 06:33] LABS: ANION GAP 6 mmol/L (5-15); CALCIUM 8.1 mg/dL (8.5-10.1); CHLORIDE 98 mmol/L (98-107)
[2021-02-03 06:34] LABS: CREATININE 0.64 mg/dL (0.55-1.02)
[2021-02-03 08:53] VITALS: BP 95/62
[2021-02-03] MEDS: ASCORBIC ACID 500 MG TABLET PO SCH ×2 (08:54→20:45)
[2021-02-03] MEDS: DEXAMETHASONE 4 MG/ML, 1ML IVPush SCH (08:54)
[2021-02-03] MEDS: CHOLECALCIFEROL 5,000u TAB PO SCH (08:54)
[2021-02-03] MEDS: ZINC SULFATE 220 MG CAPSULE PO SCH (08:54)
[2021-02-03] MEDS: SENNA/DOCUSATE TABLET PO SCH (08:54)
[2021-02-03] MEDS: BENZONATATE 100 MG CAPSULE PO SCH ×3 (08:54→20:45)
[2021-02-03] MEDS: FUROSEMIDE 40 MG/4 ML IV SCH (08:55)
[2021-02-03] MEDS: ENOXAPARIN 40 MG/0.4 ML SQ SCH ×2 (08:57→20:46)
[2021-02-03] MEDS: HYDROXYZINE PAMOATE 50MG CAP PO PRN (09:12)
[2021-02-03 12:40] VITALS: BP 97/73
[2021-02-03] MEDS: DOCUSATE 100 MG CAPSULE PO PRN (18:08)
[2021-02-03 19:35] VITALS: BP 128/85
[2021-02-03] MEDS: CALCIUM CARBONATE 500 MG TAB.CHEW PO PRN (20:45)
[2021-02-03] MEDS: MELATONIN 5 MG TABLET PO SCH (20:46)
[2021-02-04 00:17] VITALS: BP 112/77
[2021-02-04] MEDS: GUAIFENESIN/COD200MG-20MG/10ML LIQUID PO SCH ×3 (04:55→16:00)
[2021-02-04 07:48] VITALS: BP 102/67
[2021-02-04] MEDS ORDERED: FUROSEMIDE 40 MG TABLET PO SCH (09:00)
[2021-02-04] MEDS ORDERED: DEXAMETHASONE INTENSOL 1 MG/ML ORAL SOL PO SCH (09:00)
[2021-02-04] MEDS: ZINC SULFATE 220 MG CAPSULE PO SCH (09:08)
[2021-02-04] MEDS: BENZONATATE 100 MG CAPSULE PO SCH ×2 (09:08→16:00)
[2021-02-04] MEDS: SENNA/DOCUSATE TABLET PO SCH (09:08)
[2021-02-04] MEDS: ASCORBIC ACID 500 MG TABLET PO SCH (09:08)
[2021-02-04] MEDS: CHOLECALCIFEROL 5,000u TAB PO SCH (09:09)
[2021-02-04] MEDS: ENOXAPARIN 40 MG/0.4 ML SQ SCH (09:09)
[2021-02-04] MEDS ORDERED: DEXA4TAB66 PO (10:47)
[2021-02-04] MEDS ORDERED: HYDR50CA2 PO (10:47)
[2021-02-04] MEDS ORDERED: ZINC220C8 PO (10:47)
[2021-02-04] MEDS ORDERED: FURO40TA6 PO (10:47)
[2021-02-04] MEDS ORDERED: BENZ-17 PO (10:47)
[2021-02-04] MEDS ORDERED: ASCO500T9 PO (10:47)
[2021-02-04 12:10] VITALS: BP 103/69
== END 2021-02-04 22:48 | disposition home health service (06) | DRG 177 ==
LOC: ED 17:52 → EDIP 18:07 → 3N 20:18 → 4EST 01-17 20:31 → CCU 01-18 05:09 → ICU 01-23 17:28 → 5SO 01-24 16:05 → 3N 01-28 18:47
PROVIDERS: ADMIT Internal Medicine; ATTEND Family Medicine
PROC: XW033E5 Introduction of Remdesivir Anti-infective into Peripheral Vein, Percutaneous Approach, New Technology Group 5 (ICD-10-PCS; 2021-01-17)
PROC: 5A09357 Assistance with Respiratory Ventilation, Less than 24 Consecutive Hours, Continuous Positive Airway Pressure (ICD-10-PCS; 2021-01-18)
PROC: 5A0935A Assistance with Respiratory Ventilation, Less than 24 Consecutive Hours, High Flow/Velocity Cannula (ICD-10-PCS; 2021-01-20)
PROC: 5A0935A Assistance with Respiratory Ventilation, Less than 24 Consecutive Hours, High Flow/Velocity Cannula (ICD-10-PCS; 2021-01-21)
PROC: 5A0935A Assistance with Respiratory Ventilation, Less than 24 Consecutive Hours, High Flow/Velocity Cannula (ICD-10-PCS; 2021-01-22)
PROC: 5A0955A Assistance with Respiratory Ventilation, Greater than 96 Consecutive Hours, High Flow/Velocity Cannula (ICD-10-PCS; 2021-01-23)
PROC: 5A0945A Assistance with Respiratory Ventilation, 24-96 Consecutive Hours, High Flow/Velocity Cannula (ICD-10-PCS; 2021-01-28)
PROC: 5A0935A Assistance with Respiratory Ventilation, Less than 24 Consecutive Hours, High Flow/Velocity Cannula (ICD-10-PCS; principal; 2021-01-30)
PROC: 5A0945A Assistance with Respiratory Ventilation, 24-96 Consecutive Hours, High Flow/Velocity Cannula (ICD-10-PCS; 2021-02-03)
DX: U07.1 COVID-19 (principal); J96.01 Acute respiratory failure with hypoxia; J12.82 Pneumonia due to coronavirus disease 2019; E27.40 Unspecified adrenocortical insufficiency; Z68.45 Body mass index [BMI] 70 or greater, adult; E66.9 Obesity, unspecified; E87.6 Hypokalemia; F41.9 Anxiety disorder, unspecified; R79.89 Other specified abnormal findings of blood chemistry; Z79.52 Long term (current) use of systemic steroids; Z88.0 Allergy status to penicillin; Z79.899 Other long term (current) drug therapy
CPT/HCPCS: 36415; 36600; 71045; 71275; 80048; 80053; 82247; 82533; 82550; 82728; 82803; 83605; 83615; 83735; 84100; 84145; 84450; 84460; 85025; 85049; 85379; 85384; 85610; 85651; 85730; 86140; 87040; 87081; 93005; 94660; 96372; 96374; G0378; J0456; J0696; J1100; J1650; J1940; J2250; J2405; J2704; J7060; Q0162; Q9967; J2060; J3262; J7050